=== PATIENT | male | born 1945 | race Caucasian/White ===

== ENCOUNTER 2018-02-26 09:22 | Outpatient (CLI) | payer OTHER ==
[~2018-02-26 09:22] MED LIST: CIPRO500 MG PO
== END 2018-02-26 10:00 | disposition home or self-care (01) ==
LOC: NUCLEAR 09:22
DX: M88.89 Osteitis deformans of multiple sites (principal)
CPT/HCPCS: 78315; A9503

== ENCOUNTER 2018-07-03 | Inpatient (IN) | payer OTHER ==
[~2018-07-03] VITALS: Ht 170.2 cm; Wt 83.5 kg
[2018-07-03] MEDS ORDERED: ATORVASTATIN CA20 MG (00:18)
[2018-07-03] MEDS ORDERED: SINGULAIR10 MG (00:18)
[2018-07-03] MEDS ORDERED: NORVASC2.5 M1 (00:18)
[2018-07-03] MEDS ORDERED: TAMS0.4C (00:18)
[2018-07-03] MEDS ORDERED: FINASTERIDE1 MG (00:18)
[2018-07-03] MEDS ORDERED: ALTACE1.25 MG (00:18)
== END 2018-07-09 10:11 | disposition home or self-care (01) | DRG 727 ==
LOC: ER → MEDJ 10:32
DX: N41.0 Acute prostatitis (principal); A41.9 Sepsis, unspecified organism; N10 Acute pyelonephritis; E86.0 Dehydration; N40.0 Benign prostatic hyperplasia without lower urinary tract symptoms; I10 Essential (primary) hypertension; E78.4 Other hyperlipidemia; N34.1 Nonspecific urethritis; B96.29 Other Escherichia coli [E. coli] as the cause of diseases classified elsewhere

== ENCOUNTER → 2018-10-23 | Outpatient (CLI) | payer OTHER ==
[~2018-10-23] MED LIST changes: +ALTACE1.25 MG; +ATORVASTATIN CA20 MG; +FINASTERIDE1 MG; +NORVASC2.5 M1; +SINGULAIR10 MG; +TAMS0.4C
== END | disposition home or self-care (01) ==
LOC: MAMO-SONO 13:15 → SONOGRAMA 13:21
DX: N20.0 Calculus of kidney (principal); M54.5 Low back pain

== ENCOUNTER 2019-09-04 17:02 | Outpatient (CLI) | payer OTHER | END 2019-09-05 16:26 | disposition home or self-care (01) | LOC: NUCLEAR 17:02 | DX: M81.0 Age-related osteoporosis without current pathological fracture (principal); M85.88 Other specified disorders of bone density and structure, other site; M88.89 Osteitis deformans of multiple sites ==

== ENCOUNTER 2020-09-15 09:21 | Outpatient (CLI) | payer OTHER | END 2020-09-15 09:24 | disposition home or self-care (01) | LOC: NUCLEAR 09:21 | PROVIDERS: ATTEND Internal Medicine Rheumatology | DX: M08.89 Other juvenile arthritis, multiple sites (principal) | CPT/HCPCS: 78315; A9503 ==